=== PATIENT | female | born 1990 | race Caucasian/White ===

== ENCOUNTER 2017-11-05 08:50 | Emergency (ER) | payer MEDICAID ==
[~2017-11-05] VITALS: Ht 157.5 cm; Wt 60.0 kg
[~2017-11-05 08:50] MED LIST: NO HOME MEDS
[2017-11-05 08:52] VITALS: BP 124/75
[2017-11-05] MEDS ORDERED: AMOX-580 PO (09:58)
[2017-11-05] MEDS ORDERED: AFRIN NS (09:58)
== END 2017-11-05 10:08 | disposition home or self-care (01) ==
LOC: ER 08:50
DX: J32.1 Chronic frontal sinusitis (principal); H57.11 Ocular pain, right eye; F17.200 Nicotine dependence, unspecified, uncomplicated
CPT/HCPCS: 99281; 99283